=== PATIENT | female | born 1955 | race Two or more races ===

== ENCOUNTER 2019-04-09 07:04 | Outpatient (CLI) | payer OTHER | END 2019-04-09 07:19 | disposition home or self-care (01) | LOC: LAB 07:04 | DX: Z80.3 Family history of malignant neoplasm of breast (principal); D24.1 Benign neoplasm of right breast; D24.2 Benign neoplasm of left breast; D50.8 Other iron deficiency anemias; D51.8 Other vitamin B12 deficiency anemias; I10 Essential (primary) hypertension; D51.1 Vitamin B12 deficiency anemia due to selective vitamin B12 malabsorption with proteinuria; D51.0 Vitamin B12 deficiency anemia due to intrinsic factor deficiency; E03.8 Other specified hypothyroidism; E06.3 Autoimmune thyroiditis; R97.0 Elevated carcinoembryonic antigen [CEA]; R97.8 Other abnormal tumor markers ==